=== PATIENT | female | born 1995 | race Caucasian/White ===

== ENCOUNTER 2017-12-29 03:41 | Inpatient (IN) | payer OTHER ==
[~2017-12-29] VITALS: Ht 144.8 cm; Wt 62.8 kg
[2017-12-29] MEDS ORDERED: RINGERS SOLUTION,LACTATED 1,000 ML IV ONE ×3 (04:29→08:05)
[2017-12-29] MEDS ORDERED: CITRIC ACID/SODIUM CITRATE 30 ML SOLUTION UDCUP PO ONE (04:30)
[2017-12-29] MEDS ORDERED: METOCLOPRAMIDE HCL 5 MG/ML 2 ML VIAL IVP ONE (04:30)
[2017-12-29] MEDS ORDERED: AMPICILLIN SODIUM 2 GM/NS 100 ML IV SCH (05:00)
[2017-12-29 05:02] LABS: BASOPHILS % (AUTO) 0.3 % (0.0-2.0); EOSINOPHILS % (AUTO) 0.5 % (1.0-6.0); HEMATOCRIT 38.6 % (36-46); HEMOGLOBIN 13.3 g/dL (12.0-16.0); LYMPHOCYTES # (AUTO) 1.3 K/uL (1.0-4.8); LYMPHOCYTES % (AUTO) 10.6 % (22.0-44.0); MEAN CORPUSCULAR HEMOGLOBIN 31.5 pg (26.0-34.0); MEAN CORPUSCULAR HGB CONC 34.4 G/dL (31.0-37.0); MEAN CORPUSCULAR VOLUME 92 fL (80-100); MONOCYTES # (AUTO) 0.6 K/uL (0.1-1.0); NEUTROPHILS # (AUTO) 10.6 K/uL (1.8-7.7); NEUTROPHILS % (AUTO) 83.6 % (40.0-70.0); PLATELET COUNT (AUTO)-OB 270 K/uL (150-450); RED BLOOD CELL COUNT(AUTO) 4.21 MIL/uL (4.00-5.20); RED CELL DISTRIBUTION WIDTH 13.1 % (11.5-14.5)
[2017-12-29 06:07] VITALS: BP 104/70
[2017-12-29] MEDS ORDERED: PNV11TAB PO (06:13)
[2017-12-29] MEDS ORDERED: BUPIVACAINE HCL/PF 0.75% 10 ML VIAL ONE (07:00)
[2017-12-29] MEDS ORDERED: BUPIVACAINE HCL/PF 0.5% 10 ML VIAL ONE (07:02)
[2017-12-29] MEDS ORDERED: BUPIVACAINE HCL/DEX-WATER/PF 0.75% 2 ML AMP ONE (07:04)
[2017-12-29] MEDS ORDERED: ACETAMINOPHEN 1000 MG/ISO-OSM 100 ML IV ONE (07:16)
[2017-12-29] MEDS ORDERED: GUM MASTIC/STORAX/MSAL/ALCOHOL LIQUID 0.67 ML VIAL TP ONE ×2 (07:21→07:29)
[2017-12-29] MEDS ORDERED: DiphenhydrAMINE HCL 50 MG/ML VIAL IVP PRN (08:15)
[2017-12-29] MEDS ORDERED: OxyCODONE HCL/ACETAMINOPHEN 10-325 MG TABLET PO PRN (08:15)
[2017-12-29] MEDS ORDERED: HYDROmorphone 2 MG/ML SYRINGE IVP PRN ×2 (08:15)
[2017-12-29] MEDS ORDERED: MEPERIDINE-PF 25 MG/ML VIAL IVP PRN (08:15)
[2017-12-29] MEDS ORDERED: ONDANSETRON HCL 4 MG/2 ML VIAL IVP PRN (08:15)
[2017-12-29] MEDS ORDERED: NALOXONE HCL 0.4 MG/ML VIAL IVP PRN (08:15)
[2017-12-29] MEDS ORDERED: FentaNYL CITRATE-PF 100 MCG/2 ML VIAL IVP PRN ×2 (08:15)
[2017-12-29] MEDS: MAGNESIUM HYDROXIDE SUSPENSION 30 ML UDCUP PO SCH ×2 (09:00→20:54)
[2017-12-29] MEDS ORDERED: LANOLIN 7 GM OINTMENT TP PRN (09:00)
[2017-12-29] MEDS: ACETAMINOPHEN 500 MG TABLET PO SCH ×2 (14:37→20:55)
[2017-12-29] MEDS: RINGERS SOLUTION,LACTATED 1,000 ML IV SCH ×3 (14:37→22:45)
[2017-12-29] MEDS: KETOROLAC TROMETHAMINE 15 MG/ML VIAL IVP SCH ×2 (17:17→23:00)
[2017-12-30] MEDS: ACETAMINOPHEN 500 MG TABLET PO SCH (03:23)
[2017-12-30] MEDS: KETOROLAC TROMETHAMINE 15 MG/ML VIAL IVP SCH (05:00)
[2017-12-30] MEDS ORDERED: EPHEDrine SULFATE 50 MG/ML VIAL IM ONE (05:14)
[2017-12-30] MEDS ORDERED: KETOROLAC TROMETHAMINE 60 MG/2 ML VIAL IM ONE (05:14)
[2017-12-30] MEDS ORDERED: ONDANSETRON HCL 4 MG/2 ML VIAL IVP ONE (05:14)
[2017-12-30] MEDS ORDERED: MORPHINE SULFATE/PF 0.5 MG/ML 10 ML AMP IVP ONE (05:14)
[2017-12-30] MEDS ORDERED: OXYTOCIN 10 UNITS/ML VIAL IM ONE (05:14)
[2017-12-30] MEDS ORDERED: FentaNYL CITRATE-PF 100 MCG/2 ML VIAL IVP ONE (05:14)
[2017-12-30 06:25] LABS: BASOPHILS % (AUTO) 0.4 % (0.0-2.0); EOSINOPHILS % (AUTO) 0.4 % (1.0-6.0); HEMOGLOBIN 12.1 g/dL (12.0-16.0); LYMPHOCYTES # (AUTO) 1.5 K/uL (1.0-4.8); LYMPHOCYTES % (AUTO) 12.5 % (22.0-44.0); MEAN CORPUSCULAR HEMOGLOBIN 31.4 pg (26.0-34.0); MEAN CORPUSCULAR HGB CONC 34.5 G/dL (31.0-37.0); MEAN CORPUSCULAR VOLUME 91 fL (80-100); MONOCYTES # (AUTO) 0.8 K/uL (0.1-1.0); MONOCYTES % (AUTO) 6.3 % (2.0-9.0); NEUTROPHILS # (AUTO) 9.8 K/uL (1.8-7.7); NEUTROPHILS % (AUTO) 80.4 % (40.0-70.0); PLATELET COUNT (AUTO)-OB 205 K/uL (150-450); RED BLOOD CELL COUNT(AUTO) 3.85 MIL/uL (4.00-5.20); RED CELL DISTRIBUTION WIDTH 13.2 % (11.5-14.5)
[2017-12-30] MEDS: MAGNESIUM HYDROXIDE SUSPENSION 30 ML UDCUP PO SCH (09:12)
[2017-12-31] MEDS: ACETAMINOPHEN 500 MG TABLET PO SCH (08:25)
[2017-12-31] MEDS ORDERED: IBUP-2071 PO (10:58)
[2017-12-31] MEDS ORDERED: DSS100 PO (11:04)
== END 2017-12-31 12:40 | disposition home or self-care (01) | DRG 788 ==
LOC: OBSVTOIN 03:41 → 4S 03:41
PROVIDERS: ADMIT Obstetrics & Gynecology; ATTEND Obstetrics & Gynecology
PROC: 10D00Z1 Extraction of Products of Conception, Low, Open Approach (ICD-10-PCS; principal; 2017-12-29)
PROC: 3E02340 Introduction of Influenza Vaccine into Muscle, Percutaneous Approach (ICD-10-PCS; 2017-12-29)
DX: O32.1XX0 Maternal care for breech presentation, not applicable or unspecified (principal); O77.0 Labor and delivery complicated by meconium in amniotic fluid; Z3A.37 37 weeks gestation of pregnancy; Z37.0 Single live birth; Z23 Encounter for immunization
CPT/HCPCS: 86850; 86900; 86901; 87081; 90686; J0131; J0290; J0690; J1885; J2274; J2405; J2590; J2765; J3010; J3490; J7120